=== PATIENT | female | born 1985 | race Caucasian/White ===

== ENCOUNTER 2017-03-19 18:55 | Observation (INO) | payer OTHER ==
[~2017-03-19] VITALS: Ht 157.5 cm; Wt 67.6 kg
[~2017-03-19 18:55] MED LIST: ADDERALL XR 3030 MG PO; ADDERALL10 MG PO; BENTYL10 MG PO; BUSPAR10 MG PO; BUSPIRONE HCL10 MG PO; CELECOXIB200 MG PO; CIPRO500 MG PO; FLEXERIL10 MG PO; FLUOXETINE HCL40 MG PO; IBUPROFEN800 MG PO; KEPPRA1000 MG PO; KEPPRA500 MG PO; KLONOPIN0.5 M1 PO; LEVETIRACETAM500 MG PO; MIRTAZAPINE30 MG PO; MOTRIN600 MG PO; NAPROSYN500 MG PO; NEURONTIN800 MG PO; OCELLA TABLET1 EACH PO; PROAIR HFA8.5 GM IH; PROPRANOLOL HCL20 MG PO; PROTONIX40 MG PO; REVIA50 MG PO; SUCRALFATE1 GM PO; ULTRAM50 MG PO; VENTOLIN HFA18 GM IH; ZOFRAN ODT4 MG PO
[2017-03-19 19:57] LABS: MCH 30.7 PG (29.0-34.0); MCHC 34.3 G/DL (30.0-36.0); MCV 89.4 FL (83-99); MEAN PLAT.VOLUME 9.3 uM^3 (9.5-12.4); PLATELET COUNT 450 K/uL (156-360); RBC DIS.WIDTH-CV 13.7 % (11.8-14.6); RBC DIS.WIDTH-SD 44.8 % (39-53); RED BLOOD COUNT 4.14 M/uL (3.80-5.20); WHITE BLOOD COUNT 9.4 K/uL (4.1-10.2)
[2017-03-19 20:12] LABS: CHLORIDE 108 mEq/L (99-109); POTASSIUM 3.8 mEq/L (3.7-5.4); SODIUM 139 mEq/L (136-147)
[2017-03-19 20:13] LABS: GLUCOSE 102 mg/dL (70-99)
[2017-03-19 20:15] LABS: ANION GAP 11 MEQ/L (2-14)
[2017-03-19 20:17] LABS: GFR ESTIMATE (CALCULATED) > 59 mL/min/
[2017-03-19 20:18] LABS: UREA NITROGEN (BUN) 12 mg/dL (9-23)
[2017-03-19 20:26] LABS: QUANTITATIVE HCG < 4.0 MIU/ML
[2017-03-19] MEDS ORDERED: KEPPRA500 MG PO (21:08)
[2017-03-19] MEDS ORDERED: ZOFRAN ODT4 MG PO (21:10)
[2017-03-19] MEDS ORDERED: RELAFEN750 MG PO (21:11)
[2017-03-19] MEDS ORDERED: AMBIEN10 MG PO (21:11)
[2017-03-19] MEDS ORDERED: PROTONIX20 MG PO (21:12)
[2017-03-19] MEDS ORDERED: XANAX1 MG PO (21:12)
[2017-03-20 00:01] VITALS: BP 110/74
[2017-03-20 03:54] VITALS: BP 99/53
[2017-03-20 05:41] LABS: HEMATOCRIT 33.4 % (36.0-46.0); MCH 30.6 PG (29.0-34.0); MCHC 33.2 G/DL (30.0-36.0); MEAN PLAT.VOLUME 9.6 uM^3 (9.5-12.4); PLATELET COUNT 379 K/uL (156-360); RBC DIS.WIDTH-CV 14.1 % (11.8-14.6); RBC DIS.WIDTH-SD 47.6 % (39-53); RED BLOOD COUNT 3.63 M/uL (3.80-5.20); WHITE BLOOD COUNT 9.3 K/uL (4.1-10.2)
[2017-03-20 06:13] LABS: CHLORIDE 111 MEQ/L (99-109); GFR ESTIMATE (CALCULATED) > 59 mL/min/; GLUCOSE 76 mg/dL (70-99); SAMPLE HEMOLYSIS CHECK 0; SODIUM 139 MEQ/L (136-147); UREA NITROGEN (BUN) 16 mg/dL (9-23)
[2017-03-20 06:14] LABS: ANION GAP 7 MEQ/L (2-14); SAMPLE ICTERIC CHECK 0; SAMPLE LIPEMIA CHECK 0
[2017-03-20 07:42] VITALS: BP 104/69
[2017-03-20] MEDS ORDERED: BENTYL10 MG PO (11:33)
[2017-03-20] MEDS ORDERED: VENTOLIN HFA18 GM IH (11:33)
[2017-03-20] MEDS ORDERED: FLEXERIL10 MG PO (11:34)
[2017-03-20] MEDS ORDERED: RELAFEN750 MG PO (11:34)
[2017-03-20] MEDS ORDERED: PROPRANOLOL HCL20 MG PO (11:34)
[2017-03-20] MEDS ORDERED: REVIA50 MG PO (11:35)
[2017-03-20] MEDS ORDERED: NEURONTIN800 MG PO (11:35)
[2017-03-20] MEDS ORDERED: KEPPRA500 MG PO (11:35)
[2017-03-20] MEDS ORDERED: FLUOXETINE HCL40 MG PO (11:36)
[2017-03-20] MEDS ORDERED: MIRTAZAPINE30 MG PO (11:36)
[2017-03-20] MEDS ORDERED: PROTONIX20 MG PO (11:38)
[2017-03-20] MEDS ORDERED: ADDERALL XR 3030 MG PO (11:38)
[2017-03-20] MEDS ORDERED: XANAX1 MG PO (11:38)
[2017-03-20] MEDS ORDERED: SUCRALFATE1 GM PO (11:38)
[2017-03-20] MEDS ORDERED: ADDERALL10 MG PO (11:38)
[2017-03-20] MEDS ORDERED: LAMICTAL25 MG PO (11:40)
[2017-03-20 11:41] VITALS: BP 122/78
== END 2017-03-20 12:34 | disposition home or self-care (01) ==
LOC: EME 18:55 → EDOF 22:22 → 5WEST 23:47
PROVIDERS: Hospitalist; Physician Assistant
DX: G40.909 Epilepsy, unspecified, not intractable, without status epilepticus (principal); S00.93XA Contusion of unspecified part of head, initial encounter; S20.211A Contusion of right front wall of thorax, initial encounter; X58.XXXA Exposure to other specified factors, initial encounter; J45.909 Unspecified asthma, uncomplicated; F17.200 Nicotine dependence, unspecified, uncomplicated; F32.9 Major depressive disorder, single episode, unspecified; F41.9 Anxiety disorder, unspecified; F90.9 Attention-deficit hyperactivity disorder, unspecified type
CPT/HCPCS: 70450; 71101; 80048; 84702; 85027; 99202; 99281; 99285; G0378; J1650; J1885; J2060; J2765; J7030

== ENCOUNTER 2017-03-31 17:27 | Emergency (ER) | payer OTHER ==
[~2017-03-31] VITALS: Ht 160 cm; Wt 60.4 kg
[~2017-03-31 17:27] MED LIST changes: +AMBIEN10 MG PO; +LAMICTAL25 MG PO; +PROTONIX20 MG PO; +RELAFEN750 MG PO; +XANAX1 MG PO
[2017-03-31 19:13] LABS: BASOPHIL COUNT 0.1 K/uL (0-0.1); CHLORIDE 105 mEq/L (99-109); EOSINOPHIL (%) 5.7 % (0-5); EOSINOPHIL COUNT 0.7 K/uL (0-0.3); HEMATOCRIT 34.3 % (36.0-46.0); IMMATURE GRANULOCYTE (%) 0.3 % (0.0-0.7); INSTRUMENT ABS NEUTROPHIL CT 6.5 K/uL; LYMPHOCYTE COUNT 4.7 K/uL (1.0-2.8); MCH 30.6 PG (29.0-34.0); MCHC 33.2 G/DL (30.0-36.0); MCV 92.2 FL (83-99); MONOCYTE (%) 5.3 % (3-12); MONOCYTE COUNT 0.7 K/uL (0-0.8); NEUTROPHIL COUNT 6.5 K/uL (1.8-6.4); RBC DIS.WIDTH-CV 14.1 % (11.8-14.6); RBC DIS.WIDTH-SD 47.5 % (39-53); RED BLOOD COUNT 3.72 M/uL (3.80-5.20); SODIUM 138 mEq/L (136-147); WHITE BLOOD COUNT 12.7 K/uL (4.1-10.2)
[2017-03-31 19:15] LABS: GLUCOSE 70 mg/dL (70-99)
[2017-03-31 19:16] LABS: ANION GAP 10 MEQ/L (2-14)
[2017-03-31 19:17] LABS: TOTAL BILIRUBIN 0.3 mg/dL (0.0-1.0)
[2017-03-31 19:18] LABS: SERUM ETHYL ALCOHOL < 10 mg/dL
[2017-03-31 19:19] LABS: GFR ESTIMATE (CALCULATED) > 59 mL/min/
[2017-03-31 19:20] LABS: ALKALINE PHOSPHATASE 93 IU/L (3-129)
[2017-03-31 19:21] LABS: UREA NITROGEN (BUN) 8 mg/dL (9-23)
[2017-03-31 19:22] LABS: SALICYLATE < 5.0 MG/DL (15-30)
[2017-03-31 19:47] LABS: PLAT.SUFFICIENCY ADEQUATE
[2017-03-31 19:48] LABS: PLATELET COUNT 239 K/uL (156-360)
[2017-03-31 20:50] LABS: AMPHETAMINE NEGATIVE (500 ng/mL); BARBITURATES NEGATIVE (200 ng/mL); BENZODIAZEPINES PRESUMPTIVE POSITIVE (150 ng/mL); COCAINE PRESUMPTIVE POSITIVE (150 ng/mL); INTERNAL CONTROLS VALID? YES; METHADONE NEGATIVE (200 ng/mL); METHAMPHETAMINE NEGATIVE (500 ng/mL); OPIATES (MORPHINE) NEGATIVE (100 ng/mL); OXYCODONE NEGATIVE (100 ng/mL); PHENCYCLIDINE PRESUMPTIVE POSITIVE (25 ng/mL); PROPOXYPHENE NEGATIVE (300 ng/mL); THC CANNABINOIDS PRESUMPTIVE POSITIVE (50 ng/mL); TRICYCLIC ANTIDEPRESSANTS PRESUMPTIVE POSITIVE (300 ng/mL)
[2017-03-31 20:51] LABS: ADD MEDTOX COMMENT Y
[2017-03-31 21:19] LABS: BENZODIAZEPINES, URINE SCREEN POSITIVE (200 ng/mL)
[2017-04-01 05:37] VITALS: BP 113/68
== END 2017-04-01 05:38 | disposition home or self-care (01) ==
LOC: EME 17:27
PROVIDERS: Emergency Medicine
DX: F10.129 Alcohol abuse with intoxication, unspecified (principal); F19.10 Other psychoactive substance abuse, uncomplicated; F32.9 Major depressive disorder, single episode, unspecified; F41.9 Anxiety disorder, unspecified; G40.909 Epilepsy, unspecified, not intractable, without status epilepticus; F17.200 Nicotine dependence, unspecified, uncomplicated
CPT/HCPCS: 80053; 84999; 85025; 90839; 93005; 99281; 99284; G0480

== ENCOUNTER 2017-04-21 11:04 | Emergency (ER) | payer OTHER ==
[~2017-04-21] VITALS: Ht 160 cm; Wt 67.2 kg
[2017-04-21 12:26] LABS: EOSINOPHIL (%) 0.4 % (0-5); HEMATOCRIT 32.6 % (36.0-46.0); IMMATURE GRANULOCYTE (%) 0.1 % (0.0-0.7); INSTRUMENT ABS NEUTROPHIL CT 4.7 K/uL; LYMPHOCYTE COUNT 3.9 K/uL (1.0-2.8); MCH 30.6 PG (29.0-34.0); MCHC 33.7 G/DL (30.0-36.0); MCV 90.6 FL (83-99); MEAN PLAT.VOLUME 9.7 uM^3 (9.5-12.4); MONOCYTE (%) 5.7 % (3-12); MONOCYTE COUNT 0.5 K/uL (0-0.8); NEUTROPHIL (%) 51.2 % (45-76); NEUTROPHIL COUNT 4.7 K/uL (1.8-6.4); RBC DIS.WIDTH-CV 13.6 % (11.8-14.6); RBC DIS.WIDTH-SD 44.7 % (39-53); WHITE BLOOD COUNT 9.2 K/uL (4.1-10.2)
[2017-04-21 12:31] LABS: CHLORIDE 108 mEq/L (99-109); SODIUM 138 mEq/L (136-147)
[2017-04-21 12:33] LABS: GLUCOSE 116 mg/dL (70-99)
[2017-04-21 12:34] LABS: ANION GAP 7 MEQ/L (2-14)
[2017-04-21 12:37] LABS: GFR ESTIMATE (CALCULATED) > 59 mL/min/
[2017-04-21 12:38] LABS: UREA NITROGEN (BUN) 12 mg/dL (9-23)
[2017-04-21 12:43] LABS: PLATELET COUNT 342 K/uL (156-360)
[2017-04-21] MEDS ORDERED: XANAX0.25 MG PO (14:16)
[2017-04-21] MEDS ORDERED: KEPPRA500 MG PO (14:16)
[2017-04-21 15:04] VITALS: BP 107/71
== END 2017-04-21 15:06 | disposition home or self-care (01) ==
LOC: EME 11:04
PROVIDERS: Emergency Medicine
DX: G40.909 Epilepsy, unspecified, not intractable, without status epilepticus (principal); T42.6X6A Underdosing of other antiepileptic and sedative-hypnotic drugs, initial encounter; Z91.128 Patient's intentional underdosing of medication regimen for other reason; Z88.2 Allergy status to sulfonamides; F17.200 Nicotine dependence, unspecified, uncomplicated
CPT/HCPCS: 70450; 80048; 85025; 99281; 99285; J1953; J7050

== ENCOUNTER 2017-05-26 15:55 | Emergency (ER) | payer OTHER ==
[~2017-05-26] VITALS: Ht 167.6 cm; Wt 59.5 kg
[~2017-05-26 15:55] MED LIST changes: +XANAX0.25 MG PO
[2017-05-26 17:26] LABS: EOSINOPHIL (%) 0.4 % (0-5); EOSINOPHIL COUNT 0.1 K/uL (0-0.3); HEMATOCRIT 42.8 % (36.0-46.0); IMMATURE GRANULOCYTE (%) 0.4 % (0.0-0.7); IMMATURE GRANULOCYTE COUNT 0.1 K/uL; INSTRUMENT ABS NEUTROPHIL CT 9.8 K/uL; MCH 30.7 PG (29.0-34.0); MCHC 33.9 G/DL (30.0-36.0); MCV 90.5 FL (83-99); MEAN PLAT.VOLUME 9.8 uM^3 (9.5-12.4); MONOCYTE (%) 4.9 % (3-12); MONOCYTE COUNT 0.7 K/uL (0-0.8); NEUTROPHIL (%) 72.2 % (45-76); NEUTROPHIL COUNT 9.8 K/uL (1.8-6.4); PLATELET COUNT 383 K/uL (156-360); RBC DIS.WIDTH-CV 13.5 % (11.8-14.6); RBC DIS.WIDTH-SD 45.2 % (39-53); RED BLOOD COUNT 4.73 M/uL (3.80-5.20); WHITE BLOOD COUNT 13.6 K/uL (4.1-10.2)
[2017-05-26 17:37] LABS: CHLORIDE 105 mEq/L (99-109); POTASSIUM 4.8 mEq/L (3.7-5.4); SODIUM 140 mEq/L (136-147)
[2017-05-26 17:39] LABS: GLUCOSE 97 mg/dL (70-99)
[2017-05-26 17:41] LABS: ANION GAP 16 MEQ/L (2-14)
[2017-05-26 17:43] LABS: GFR ESTIMATE (CALCULATED) 35 mL/min/
[2017-05-26 17:44] LABS: UREA NITROGEN (BUN) 16 mg/dL (9-23)
[2017-05-26 17:46] LABS: CREATINE KINASE 265 IU/L (1-294)
[2017-05-26 17:54] LABS: QUANTITATIVE HCG < 4.0 MIU/ML
[2017-05-27 01:04] LABS: AMPHETAMINE NEGATIVE (500 ng/mL); BENZODIAZEPINES PRESUMPTIVE POSITIVE (150 ng/mL); COCAINE PRESUMPTIVE POSITIVE (150 ng/mL); METHAMPHETAMINE NEGATIVE (500 ng/mL); OPIATES (MORPHINE) NEGATIVE (100 ng/mL); PHENCYCLIDINE NEGATIVE (25 ng/mL); THC CANNABINOIDS PRESUMPTIVE POSITIVE (50 ng/mL)
[2017-05-27 01:05] LABS: ADD MEDTOX COMMENT Y; BARBITURATES NEGATIVE (200 ng/mL); INTERNAL CONTROLS VALID? YES; METHADONE NEGATIVE (200 ng/mL); OXYCODONE NEGATIVE (100 ng/mL); PROPOXYPHENE NEGATIVE (300 ng/mL); TRICYCLIC ANTIDEPRESSANTS NEGATIVE (300 ng/mL)
[2017-05-27 01:37] VITALS: BP 92/59
[2017-05-27 01:38] LABS: BENZODIAZEPINES, URINE SCREEN POSITIVE (200 ng/mL)
[2017-05-27] MEDS ORDERED: UNABLE TO OBTAIN (01:38)
== END 2017-05-27 01:40 | disposition home or self-care (01) ==
LOC: EME 15:55
PROVIDERS: Emergency Medicine
DX: F10.129 Alcohol abuse with intoxication, unspecified (principal); T50.901A Poisoning by unspecified drugs, medicaments and biological substances, accidental (unintentional), initial encounter; J45.909 Unspecified asthma, uncomplicated; F32.9 Major depressive disorder, single episode, unspecified; R56.9 Unspecified convulsions; F41.9 Anxiety disorder, unspecified; F17.200 Nicotine dependence, unspecified, uncomplicated
CPT/HCPCS: 70450; 80048; 82550; 84702; 84999; 85025; 99281; 99285; J1630; J2060; J2250; J7030

== ENCOUNTER 2017-06-11 14:03 | Emergency (ER) | payer OTHER ==
[~2017-06-11] VITALS: Ht 160 cm; Wt 67.1 kg
[~2017-06-11 14:03] MED LIST changes: +UNABLE TO OBTAIN
[2017-06-11] MEDS ORDERED: INDERAL20 MG PO (14:26)
[2017-06-11] MEDS ORDERED: KEPPRA500 MG PO (14:27)
[2017-06-11] MEDS ORDERED: ADDERALL5 MG PO (14:29)
[2017-06-11] MEDS ORDERED: XANAX0.5 MG PO (14:30)
[2017-06-11] MEDS ORDERED: LAMICTAL25 MG PO (15:14)
[2017-06-11 15:28] VITALS: BP 114/71
== END 2017-06-11 15:37 | disposition home or self-care (01) ==
LOC: EME 14:03
DX: G40.909 Epilepsy, unspecified, not intractable, without status epilepticus (principal); R42 Dizziness and giddiness; F41.9 Anxiety disorder, unspecified; F17.200 Nicotine dependence, unspecified, uncomplicated
CPT/HCPCS: 70450; 99281; 99284